=== PATIENT | female | born 1925 | race Caucasian/White ===

== ENCOUNTER 2017-05-10 15:04 | Inpatient (IN) ==
[2017-05-10] MEDS ORDERED: 0.9 % Sodium Chloride 1,000 ML IVC ONE (15:40)
[2017-05-10] MEDS ORDERED: Ondansetron 4 MG/2 ML VIAL IVP ONE (15:47)
[2017-05-10 16:04] LABS: Basophils # 0.1 K/mcL (0.0-0.2); Basophils % 0.7 %; Eosinophils # 0.1 K/mcL (0.0-0.6); Eosinophils % 1.4 %; Hematocrit 38.6 % (35.3-44.9); Hemoglobin 12.3 g/dL (11.5-15.4); Immature Granulocytes % 0.2 % (0-4); Lymphocytes # 1.9 K/mcL (0.6-4.6); Mean Corpuscular HGB Conc 31.9 g/dL (31.6-35.5); Mean Corpuscular Hemoglobin 29.3 pg (28.0-33.3); Mean Corpuscular Volume 91.9 fL (83.0-100.0); Mean Platelet Volume 9.7 fL (9.4-12.4); Monocytes % 12.3 %; Neutrophils # 4.9 K/mcL (1.6-8.9); Platelet Count 258 K/mcL (140-400); Red Cell Distribution Width 14.3 % (11.5-14.5); Segmented Neutrophils % 61.4 %
[2017-05-10 16:18] LABS: Albumin/Globulin Ratio 1.4 (1.1-2.2); Bilirubin,Total 0.6 mg/dL (0.3-1.0); Calcium 9.4 mg/dL (8.6-10.3); Globulin 2.8 g/dL (2.4-3.5); Potassium 3.6 mEq/L (3.5-5.1); Total Protein 6.8 g/dL (6.4-8.9)
[2017-05-10] MEDS ORDERED: 0.9 % Sodium Chloride 500 ML IVC ONE (17:17)
[2017-05-10 18:27] LABS: Bilirubin,Urine Small (Negative); Blood,Urine Moderate (Negative); Clarity,Urine Slightly Cloudy (Clear); Glucose,Urine (UA) Normal (Normal); Ketones,Urine Trace mg/dL (Negative); Leukocyte Esterase,Urine Small (Negative); Nitrite,Urine Negative (Negative); Protein,Urine 100 mg/dL (Neg-Trace); Specific Gravity,Urine 1.025 (1.010-1.025); Urobilinogen,Urine Normal (Normal)
[2017-05-10 18:28] LABS: Color,Urine Yellow (Yellow)
[2017-05-10] MEDS ORDERED: Acetaminophen 325 MG TABLET PO ONE (18:32)
[2017-05-10 18:33] LABS: Bacteria,Urine Few per hpf (None-Few); Hyaline Casts,Urine Few per lpf (None-Few); Squamous Epithelial Cell,Urine Few per lpf (None-Few)
--- NOTE | 2017-05-10 19:27 | Emergency Department Note ---
Disposition Clinical Impression: Urinary tract infection Disposition: Admitted As Inpatient Condition: Fair Instructions: Urinary Tract Infection in Women (ED) Referrals: Esteban Ken MD [Primary Care Provider] - Forms: ED Satisfaction Letter Time of Disposition: 19:27 General Adult HPI - General Chief complaint: ED Headache Stated complaint: bp Time Seen by Provider: 05/10/17 15:25 Source: patient, family Limitations: no limitations Nursing Notes Reviewed: Yes Vital Signs Reviewed: Yes - History of Present Illness HPI Narrative: Ms. Campos has had decreased by mouth intake for the last couple of days. She has been somewhat nauseated but is not vomiting. Very little output into her permanent colostomy bag. No fever no chills. She has been dizzy and lightheaded. No abdominal pain. She has had neck pain for about 2 weeks now on the absence of any trauma and for the last day or so has had a headache. No chest pain no palpitations no urinary symptoms no cough no shortness of breath. She also seems a bit more disoriented than usual per her daughter who accompanies her to the emergency department [place]. Ms. Campos lives at home and has a home health aide check in on her twice a day. She was sent in by her family doctor who called me after discovering that she was very orthostatic in his office. Pain Scale: 6 - Related Data Home Medications Medication Instructions Recorded Confirmed Aspirin [Lo-Dose Aspirin EC] 81 mg PO DAILY 10/31/15 11/21/16 Atorvastatin [Lipitor] 80 mg PO HS 10/31/15 11/21/16 Citalopram [CeleXA] 20 mg PO DAILY 10/31/15 11/21/16 Diltiazem HCl [Diltiazem ER] 180 mg PO DAILY 10/31/15 11/21/16 Lisinopril [Zestril] 20 mg PO DAILY 10/31/15 11/21/16 Multivitamin [Multivitamins] 1 each PO DAILY 10/31/15 11/21/16 Rivaroxaban [Xarelto] 20 mg PO DAILY 10/31/15 11/21/16 hydroCHLOROthiazide 25 mg PO DAILY 10/31/15 11/21/16 [Hydrochlorothiazide] Donepezil [Aricept] 5 mg PO HS 11/21/16 11/21/16 Previous Rx's Medication Instructions Recorded Ondansetron HCl [Zofran] 4 mg PO Q6H PRN #10 tablet 12/25/16 Allergies Allergy/AdvReac Type Severity Reaction Status Date / Time celecoxib [From Celebrex] Allergy See Verified 12/25/16 01:45 Comments methocarbamol [From Robaxin] Allergy See Verified 12/25/16 01:45 Comments Tetanus Vaccines and Toxoid Allergy Anaphylaxis Verified 12/25/16 01:45 [Tetanus Vaccines & Toxoid] morphine AdvReac Confusion Verified 12/25/16 01:45 Constitutional: Denies: fever, chills Eyes: Denies: vision change ENT ED: Denies: throat pain, congestion Cardiovascular: Denies: chest pain, palpitations Respiratory: Denies: cough, dyspnea Gastrointestinal: Reports: as per HPI. Denies: abdominal pain, nausea, vomiting , diarrhea Genitourinary: Denies: urgency, dysuria, frequency Musculoskeletal: Reports: neck pain. Denies: myalgia Neurological: Reports: headache Endocrine: Reports: fatigue Hematological/Lymphatic: Reports: easy bruising Past Medical History - Past Medical History Medical history: Reports: atrial fibrillation, dementia, hyperlipidemia, hypertension Psychiatric history: Reports: depression GOAL UMPIRE history: Reports: no GOAL UMPIRE history - Social History Smoking Status: Never smoker Smokeless Tobacco Status: No Alcohol use: Reports: none Drug use: Reports: none Physical Exam - General Limitations: no limitations General appearance: alert, in no apparent distress - Head Head exam: atraumatic, normocephalic, normal inspection - Eye Eye exam: Present: normal appearance, PERRL, EOMI. Absent: periorbital swelling , periorbital tenderness - ENT ENT exam: normal oropharynx, mucous membranes dry, TM's normal bilaterally, normal external ear exam - Neck Neck exam: Present: normal inspection, full ROM. Absent: tenderness - Chest Chest inspection: Present: normal inspection, symmetric chest wall rise - Respiratory Respiratory exam: Present: normal lung sounds bilaterally. Absent: respiratory distress, wheezes, stridor - Cardiovascular Cardiovascular exam: Present: regular rate, normal rhythm, normal heart sounds - Abdominal Exam Abdominal exam: Present: soft, Non-Tender, normal bowel sounds, other ( Colostomy bag intact. It is not see-through therefore I cannot comment on the contents but they feel as though they are liquefied.). Absent: distention, guarding, rebound, rigidity - Extremities Exam Extremities exam: Present: normal inspection. Absent: pedal edema - Expanded Lower Extremity Exam Neurovascular/Tendon exam: Absent: pulse deficit (Radial pulse +2 bilateral) - Neurological Exam Neurological exam: Present: alert - Psychiatric Psychiatric exam: Present: normal affect, normal mood - Skin Skin exam: Present: warm, dry Course Vital Signs Temperature 98.2 F 05/10/17 15:13 Pulse Rate 74 05/10/17 15:13 Respiratory Rate 18 05/10/17 15:13 Blood Pressure 132/77 05/10/17 15:13 O2 Sat by Pulse Oximetry 98 05/10/17 15:13 Temperature 98.2 F 05/10/17 15:13 Pulse Rate 77 05/10/17 19:43 Respiratory Rate 14 05/10/17 19:43 Blood Pressure 142/64 05/10/17 19:43 O2 Sat by Pulse Oximetry 97 05/10/17 19:43 Oxygen Delivery Oxygen Delivery Room Air Medical Decision Making - MDM Narrative Medical decision making narrative: Urinary tract infection. This could be the etiology for her increased confusion and decreased appetite. She was given 1500 mL's before she was able to produce a urine sample. After which I did help her to a standing position but she is very unsteady. I believe she is a fall risk and it might be more prudent to observe her in the hospital overnight to continue IV hydration and start her medication for urinary tract infection. Daughter is in agreement with this. They did try her family physician several times over the course of an hour after workup was done and disposition was ready. Unfortunately I was unable to speak with him about the admission therefore I spoke with the covering hospitalist and [place] and presented the case. He accepted admission. Ms. Campos is in stable condition awaiting transfer to [place]. The admitting family physician here at [facility] did call back and is happy to take Ms. Campos as an admission. Orders were written and she was transferred back to the floor in good condition. - Medical Records Medical records reviewed: Yes I reviewed the patient's medical records. - Lab Data Lab results reviewed: Yes I reviewed the patient's lab results. Result diagrams: 05/10/17 15:51 05/10/17 15:51 Lab Results 05/10/17 05/10/17 05/10/17 Range/Units 15:51 15:51 15:51 WBC 8.0 (4.3-11.1) K/mcL RBC 4.20 (3.82-4.97) M/mcL Hgb 12.3 (11.5-15.4) g/dL Hct 38.6 (35.3-44.9) % MCV 91.9 (83.0-100.0) fL MCH 29.3 (28.0-33.3) pg MCHC 31.9 (31.6-35.5) g/dL RDW 14.3 (11.5-14.5) % Plt Count 258 (140-400) K/mcL MPV 9.7 (9.4-12.4) fL Immature Gran % 0.2 (0-4) % Seg Neutrophils % 61.4 % Lymphocytes % 24.0 % Monocytes % 12.3 % Eosinophils % 1.4 % Basophils % 0.7 % Neutrophils # 4.9 (1.6-8.9) K/mcL Lymphocytes # 1.9 (0.6-4.6) K/mcL Monocytes # 1.0 (0.0-1.3) K/mcL Eosinophils # 0.1 (0.0-0.6) K/mcL Basophils # 0.1 (0.0-0.2) K/mcL Sodium 138 (136-145) mEq/L Potassium 3.6 (3.5-5.1) mEq/L Chloride 100 (98-107) mEq/L Carbon Dioxide 27 (23-29) mEq/L BUN 25 H (8-23) mg/dL Creatinine 1.27 H (0.60-1.20) mg/dL Est GFR ( Amer) 48 L (> 60) Est GFR (Non-Af Amer) 40 L (> 60) BUN/Creatinine Ratio 20 (6-26) Glucose 97 (70-105) mg/dL Calculated Osmolality 290 (280-300) Lactic Acid 0.9 (0.5-2.2) mmol/L Calcium 9.4 (8.6-10.3) mg/dL Total Bilirubin 0.6 (0.3-1.0) mg/dL AST 21 (13-39) Units/L ALT 12 (7-52) Units/L Alkaline Phosphatase 79 (34-104) Units/L Serum Total Protein 6.8 (6.4-8.9) g/dL Albumin 4.0 (3.5-5.7) g/dL Globulin 2.8 (2.4-3.5) g/dL Albumin/Globulin Ratio 1.4 (1.1-2.2) Lipase (11-82) Units/L Urine Color Urine Clarity Urine pH Ur Specific [place] Urine Protein Urine Glucose (UA) Urine Ketones Urine Blood Urine Nitrite Urine Bilirubin Urine Urobilinogen Ur Leukocyte Esterase Urine Microscopic RBC (0-3) per hpf Urine Microscopic WBC (0-3) per hpf Ur Squamous Epith Cells (None-Few) per lpf Urine Bacteria (None-Few) per hpf Hyaline Casts (None-Few) per lpf Ur Culture Indicated? (NO) 05/10/17 05/10/17 05/10/17 Range/Units 15:51 16:40 18:20 WBC (4.3-11.1) K/mcL RBC (3.82-4.97) M/mcL Hgb (11.5-15.4) g/dL Hct (35.3-44.9) % MCV (83.0-100.0) fL MCH (28.0-33.3) pg MCHC (31.6-35.5) g/dL RDW (11.5-14.5) % Plt Count (140-400) K/mcL MPV (9.4-12.4) fL Immature Gran % (0-4) % Seg Neutrophils % % Lymphocytes % % Monocytes % % Eosinophils % % Basophils % % Neutrophils # (1.6-8.9) K/mcL Lymphocytes # (0.6-4.6) K/mcL Monocytes # (0.0-1.3) K/mcL Eosinophils # (0.0-0.6) K/mcL Basophils # (0.0-0.2) K/mcL Sodium (136-145) mEq/L Potassium (3.5-5.1) mEq/L Chloride (98-107) mEq/L Carbon Dioxide (23-29) mEq/L BUN (8-23) mg/dL Creatinine (0.60-1.20) mg/dL Est GFR ( Amer) (> 60) Est GFR (Non-Af Amer) (> 60) BUN/Creatinine Ratio (6-26) Glucose (70-105) mg/dL Calculated Osmolality (280-300) Lactic Acid (0.5-2.2) mmol/L Calcium (8.6-10.3) mg/dL Total Bilirubin (0.3-1.0) mg/dL AST (13-39) Units/L ALT (7-52) Units/L Alkaline Phosphatase (34-104) Units/L Serum Total Protein (6.4-8.9) g/dL Albumin (3.5-5.7) g/dL Globulin (2.4-3.5) g/dL Albumin/Globulin Ratio (1.1-2.2) Lipase 28 (11-82) Units/L Urine Color TNP Yellow Urine Clarity TNP Slightly Cloudy A Urine pH TNP 5.0 Ur Specific [place] TNP 1.025 Urine Protein TNP 100 H Urine Glucose (UA) TNP Normal Urine Ketones TNP Trace H Urine Blood TNP Moderate H Urine Nitrite TNP Negative Urine Bilirubin TNP Small H Urine Urobilinogen TNP Normal Ur Leukocyte Esterase TNP Small H Urine Microscopic RBC 3-5 H (0-3) per hpf Urine Microscopic WBC 5-15 H (0-3) per hpf Ur Squamous Epith Cells Few (None-Few) per lpf Urine Bacteria Few (None-Few) per hpf Hyaline Casts Few (None-Few) per lpf Ur Culture Indicated? YES A (NO) - Radiology Data Radiology results reviewed: Yes I reviewed the patient's radiology results.
[2017-05-10] MEDS ORDERED: 0.9 % Sodium Chloride 1,000 ML IVC SCH ×2 (20:15→22:15)
[2017-05-10] MEDS ORDERED: Nitrofurantoin (BID) 100 MG CAPSULE PO ONE (20:57)
[2017-05-10] MEDS ORDERED: Naloxone 0.4 MG/ML INJ IVP PRN (22:06)
[2017-05-11] MEDS ORDERED: *HR* HYDROcodone/Acet 5/325 mg TABLET PO ONE (00:41)
[2017-05-11] MEDS: 0.9 % Sodium Chloride 1,000 ML IVC SCH ×2 (04:34→05:24)
[2017-05-11 05:56] LABS: Blood Urea Nitrogen 14 mg/dL (8-23); Calcium 8.8 mg/dL (8.6-10.3); Carbon Dioxide 22 mEq/L (23-29); Chloride 103 mEq/L (98-107); Glucose 87 mg/dL (70-105); Osmolality,Calculated 280 (280-300); Sodium 135 mEq/L (136-145)
[2017-05-11 06:53] LABS: BUN/Creatinine Ratio 16 (6-26); eGFR For Non-African Americans > 60 (> 60)
[2017-05-11] MEDS ORDERED: Nitrofurantoin (BID) 100 MG CAPSULE PO SCH (08:00)
[2017-05-11] MEDS ORDERED: Diltiazem CD (24hr) 180 MG CAPSULE PO SCH (09:00)
[2017-05-11] MEDS ORDERED: *HR* Rivaroxaban 10 MG TABLET PO SCH (09:00)
--- NOTE | 2017-05-11 09:07 | Internal Med History&Physical ---
Date of Encounter: 05/11/17 Time of Encounter: 09:07 Assessment and Plan (1) Atrial fibrillation with RVR Current visit: Yes Status: Acute Patient was admitted to the hospital with orthostatic hypotension, acute confusion, severe weakness and lethargy and inability to ambulate. It was documented she was in normal sinus rhythm in the ER. However, overnight patient has developed atrial fibrillation with RVR and is now on a Cardizem drip. She has a history of atrial fibrillation in the past and was well controlled with po Cardizem. She is having no angina or CHF. Does not give her any symptoms. I suspect she either missed a dose of her oral Cardizem, or her acute illness has thrown her into atrial fibrillation with RVR. Fortunately , she is already anticoagulated with Xarelto. I clarified CODE STATUS with daughter and written information regarding living will etc. She will be DNR CCA. No intubation, no CPR, no life support. (2) Urinary tract infection Current visit: Yes Status: Acute In the ER her urine appeared to be infected. She has no acute urinary symptoms. She was started on Macrodantin. Given her hospitalization and continued fatigue and lethargy I am going to add intravenous Levaquin until culture is back. Her UTI may contributed to her feeling ill, poor by mouth intake, acute confusion, lethargy etc. Qualifiers: Urinary tract infection type: acute cystitis Hematuria presence: without hematuria Qualified Code(s): N30.00 - Acute cystitis without hematuria (3) Orthostatic hypotension Current visit: Yes Status: Acute Patient was found to have orthostatic hypotension in the office with blood pressure going from 126/60 down to 70/palp. She has been given IV fluids. Her blood pressure has improved. She still looks dry. Her creatinine was in the normal limit yesterday, but elevated and improved after IV hydration today. I suspect some acute mild kidney injury from dehydration. We will continue IV fluids for now. (4) Paroxysmal atrial fibrillation Current visit: Yes Status: Chronic Chronic history of paroxysmal atrial fibrillation. She has been in sinus rhythm in the office past many visits. She has long-term anticoagulation with Xarelto. She has no angina or congestive heart failure history. (5) Depression Current visit: Yes Status: Chronic Chronic history of depression and uses citalopram. Qualifiers: Depression Type: major depressive disorder Major depression recurrence: single episode Active/Remission status: in partial remission Qualified Code( s): F32.4 - Major depressive disorder, single episode, in partial remission (6) Mild dementia Current visit: Yes Status: Chronic Chronically has mild dementia, but lives in her own home, has caregivers that help. Up until recently she was able to drive. She is able to take care of her usual personal hygiene and care. Currently however she has acute confusion likely due to her infection and dehydration. (7) Hypertension Current visit: Yes Status: Chronic chronic history of hypertension and chronically uses lisinopril and hydrochlorothiazide. Is also on Cardizem due to paroxysmal atrial fibrillation. There is both being held because of her orthostatic hypotension and probable dehydration. Qualifiers: Hypertension type: essential hypertension Qualified Code(s): I10 - Essential (primary) hypertension (8) Acute confusion due to known medical condition Current visit: Yes Status: Acute She is acute confusion and lethargy likely due to her presumed dehydration, acute urinary tract infection, poor by mouth intake over the past few days. We will continue with IV fluids, treat infection, supportive care. (9) Personal history of colon cancer Current visit: Yes Status: Chronic History of colon cancer since 1994 and had resection and ostomy. Currently there is no air or liquid in her ostomy bag. She did have air previously. Abdomen is soft and nontender. No vomiting. We will monitor. She does have a history of recurring small bowel obstructions with conservative treatment seem to resolve (10) Dehydration Current visit: Yes Status: Acute Likely dehydration with dry mucous membranes, I and imbalance, mild bump up in her creatinine improved with IV fluids now, orthostatic hypotension. We will continue IV fluids and monitor. (11) Electrolyte imbalance Current visit: Yes Status: Acute We will add potassium to her IV. (12) Chronic anticoagulation Current visit: Yes Status: Chronic Clinically she is on Xarelto for paroxysmal atrial fibrillation. We will not give her Lovenox further anticoagulation for DVT prophylaxis. Internal Medicine - H&P: HPI Chief complaint: I have a headache Admitted From: Emergency Dept Plans for Post Hospital Care: Home History of present illness: Ms. Campos is a 89 year old female with long-standing history of hypertension , paroxysmal atrial fibrillation, anticoagulation with Xarelto, mild dementia who lives in her own home but has caregivers part of the day. She was her usual self until about 2 weeks prior to admission when she started having a headache and neck pain. She was using Icy hot and Tylenol for her symptoms. However, 2 days prior to admission and became a lot worse. I saw her in the office yesterday, she has not had any food to eat for at least 2 days and had only a small amount of 7-Up to drink over the previous 2 days. She had some mild nausea but no vomiting. She has no fever, chills, cough. She denied any stiff neck, but complained of pain in the back of her neck and nonspecific generalized headache. No recent travel or exposures. She denied any chest pain , palpitation, irregular heartbeat, vomiting. She was having air into her ostomy bag but cannot remember the last stool she had. When I saw her in the office she looked acutely ill, she was slouched down in the wheelchair, was unable to stand without assistance, her blood pressure dropped from 126/60 to 70/palp standing upright. She had dried mucous membranes. She was immediately sent to the emergency room. There her evaluation showed possible UTI with infected appearing urine and she had orthostatic hypotension. She was given IV fluids. She still has confusion and lethargy and was admitted overnight to an observation bed for more IV fluids. This morning however, she has gone from normal sinus rhythm to atrial fibrillation with RVR with heart rate in the 140s. She has no chest pain, palpitations and she has feels very comfortable lying in bed except for her headache. She is dozing on and off. She did not get much sleep last night because of the IV, her headache and frequent urination. She also remains confused. Her daughter who is present says she is not back to baseline. Patient thought she had been here for 2 or 3 days, but she knew she was in the hospital. She does not recall being in the office yesterday, does not recall the ER or any other details. She is dozing on and off. Past Med Surg Social Fam HX - Past Medical History Medical history: atrial fibrillation (Paroxysmal atrial fibrillation, anticoagulated with Xarelto), cancer (History of colon cancer 1994 and has ostomy), dementia, hyperlipidemia, hypertension, other (History lumbar radiculopathy pain) Psychiatric history: depression, other (Mild dementia) - Past Surgical History Surgical History: appendectomy, colectomy (1994 colon resection for cancer), herniorrhaphy, hysterectomy, orthopedic, other (Right distal radial fracture 2012) - Social History Smoking Status: Never smoker Smokeless Tobacco Status: No Alcohol use: occasionally Drug use: none 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[employer]) Current living situation: Home, Other (Has caregiver part of the day and daughter lives nearby) Activity Level: Independent ambulation (Generally independent ambulation in the home, uses cane or walker frequently not able to do so currently), Uses cane/ walker Recent Out of Country Travel Within the Last 8 Weeks: No Exposure or Possible Exposure to Illness During Travel: No - Family History Daughter History Unknown: Yes Name: Roselyn Sandoval Living Status: Still Living Hx Family Cardiac Disorders: (unknown) Hx Family Respiratory Disorders: (unknown) Hx Family Cancer: (unknown) Hx Family GI Disorders: (unknown) Hx Family Genitourinary Disorders: (unknown) Hx Family Endocrine Disorder: (unknown) Hx Family Musculoskeletal Disorders: (unknown) Hx Family Neuromuscular Disorders: (unknown) Hx Family Neurologic Disorders: (unknown) Hx Family HEENT Disorders: (unknown) Hx Family Autoimmune Disorders: (unknown) Hx Family Reproductive Disorders: (unknown) Hx Family Psychosocial Disorders: (unknown) Hx Family Medical Disorders: (unknown) Internal Medicine - H&P: Meds Aspirin [Lo-Dose Aspirin EC] 81 mg PO DAILY 10/31/15 [History] Atorvastatin [Lipitor] 80 mg PO HS 10/31/15 [History] Citalopram [CeleXA] 20 mg PO DAILY 10/31/15 [History] Diltiazem HCl [Diltiazem ER] 180 mg PO DAILY 10/31/15 [History] Lisinopril [Zestril] 20 mg PO DAILY 10/31/15 [History] Multivitamin [Multivitamins] 1 each PO DAILY 10/31/15 [History] Rivaroxaban [Xarelto] 20 mg PO DAILY 10/31/15 [History] hydroCHLOROthiazide [Hydrochlorothiazide] 25 mg PO DAILY 10/31/15 [History] Donepezil [Aricept] 5 mg PO HS 11/21/16 [History] Omeprazole [PriLOSEC] 05/11/17 [History] Omeprazole [PriLOSEC] 40 mg PO DAILY 05/11/17 [History] 3 Allergy/AdvReac Type Severity Reaction Status Date / Time celecoxib [From Celebrex] Allergy See Verified 12/25/16 01:45 Comments methocarbamol [From Robaxin] Allergy See Verified 12/25/16 01:45 Comments Tetanus Vaccines and Toxoid Allergy Anaphylaxis Verified 12/25/16 01:45 [Tetanus Vaccines & Toxoid] morphine AdvReac Confusion Verified 12/25/16 01:45 - Constitutional Constitutional: anorexia (Had not eaten for 2-3 days prior to admission), lethargy, malaise, weakness (Generalized weakness, inability to walk), no chills , no fever(s), no falls, no night sweats - EENT Eyes: no change in vision, no diplopia, no discharge, no loss of vision Ears: no decreased hearing, no ear discharge, no ear pain Nose, mouth and throat: dry mouth, no nasal congestion, no sinus pressure, no sore throat - Cardiovascular Cardiovascular ROS IM: lightheadedness, no chest pain, no diaphoresis, no dyspnea, no dyspnea on exertion, no edema, no irregular heart rhythm, no orthopnea, no palpitations, no syncope - Respiratory Respiratory: no cough, no dyspnea, no hemoptysis, no dyspnea on exertion, no wheezing - Gastrointestinal Gastrointestinal: nausea (Small amount of nausea but no vomiting. Virtually no po intake for the past 2 or 3 days), no abdominal pain, no belching, no bloating , no constipation, no vomiting Additional comments: She has had air in her ostomy bag, but cannot recall the last time she had stool or liquid - Genitourinary Genitourinary: no dysuria, no flank pain, no pelvic pain, no urinary frequency, no urinary incontinence, no urinary urgency, no vaginal discharge Menstruation: post menopausal - Musculoskeletal Musculoskeletal ROS IM: as per HPI Additional comments: Generalized weakness likely due to orthostatic hypotension - Integumentary Integumentary IM: no new lesions, no jaundice - Neurological Neurological ROS: confusion (Increased confusion today, lack of memory for the past few days events.), disequilibrium, memory loss (As in history of present illness), weakness (Generalized weakness as in history of present illness), no abnormal speech, no focal weakness, no radicular pain, no tremor(s), no vertigo - Psychiatric Psychiatric: memory loss (As in history of present illness), no auditory hallucinations, no visual hallucinations - Constitutional Vitals: Temp Pulse Resp BP Pulse Ox 98.5 F 98 18 153/80 93 05/11/17 04:00 05/11/17 04:00 05/11/17 04:00 05/11/17 04:00 05/11/17 04:00 General appearance: Present: A&O X 2, mild distress (Complaints of headache, but dozes off in between questions). Absent: answers questions appropriately - Head Head exam: Present: atraumatic, normal inspection, normocephalic Additional comments: No localizing tenderness. No signs of trauma. - Eye Eye exam: Present: EOMI. Absent: nystagmus, scleral icterus Pupils: Present: PERRL - ENT ENT exam: Present: mucous membranes dry Additional comments: Right TM is obscured with cerumen. Left is normal - Neck Neck exam general surgery: Present: full ROM (Full range of motion for her age. No meningeal signs.). Absent: lymphadenopathy, tenderness, nuchal rigidity, thyromegaly - Respiratory Respiratory exam: Present: CTAB. Absent: rales, respiratory distress, rhonchi, wheezes, tachypnea - Cardiovascular Cardiovascular exam: Present: irregular rhythm (Heart rate proximal and 100, monitor showed up to 149), +S1, +S2, systolic murmur (Intermittent 1/6 systolic murmur) - GI/Abdominal GI/Abdominal exam: Present: normal bowel sounds, soft. Absent: tenderness Additional comments: Abdomen soft and nontender. Ostomy in the right lower quadrant without air or stool or liquid. She has weak abdominal musculature with large hernias particularly left upper quadrant. No masses. - Extremities Exam Extremities exam: Present: normal capillary refill, warm. Absent: calf tenderness, joint swelling, mottling, pedal edema, tenderness - Back Exam Back exam: Absent: CVA tenderness (L), CVA tenderness (R), vertebral tenderness - Neurological Exam Neurological exam: Present: altered (She drifts off to sleep easily.), CN II- XII intact, strengths equal and symetr throughout. Absent: oriented X3 (She no she is in the hospital. She knows who I am. She thinks she has been here 2 or 3 days though not just overnight. She does not recall being in the office or in the ER yesterday.), no focal deficits, facial droop - Psychiatric Additional comments: She is very sleepy today. She is pleasant in conversation. Memory deficits as discussed in history of present illness. - Skin Skin exam: Absent: petechiae, rash Internal Med - H&P Results - Labs CBC & Chem 7: 05/10/17 15:51 05/11/17 05:10 Labs: BMP 05/11/17 05:10 Sodium 135 L Potassium 3.0 L Chloride 103 Carbon Dioxide 22 L BUN 14 Creatinine 0.85 Glucose 87 Calcium 8.8 Labs have been reviewed. Overnight she developed hypokalemia and hyponatremia. Creatinine has improved. - EKG Data EKG comments: 05/11/17 10:22 EKG from admission shows normal sinus rhythm. Monitor on telemetry today shows atrial fibrillation with RVR with heart rate up to 149. Current EKG is pending. - VTE Reasons for not Prescribing Prophylaxis: Not indicated-Anticoagulated or INR therapeutic
[2017-05-11] MEDS ORDERED: 0.9 % Sodium Chloride Mini Bag 100 ML ONE (09:33)
[2017-05-11] MEDS: Aspirin Enteric Coated 81 MG Tablet PO SCH (09:56)
[2017-05-11] MEDS: 0.9 % Sodium Chloride w KCl 20 MEQ/1,000 ML MLS IVC SCH ×2 (12:32→21:30)
[2017-05-11] MEDS: Diltiazem CD (24hr) 240 MG CAPSULE PO SCH (16:21)
[2017-05-11] MEDS: Acetaminophen 325 MG TABLET PO PRN (17:50)
[2017-05-11] MEDS ORDERED: Acetaminophen 325 MG TABLET PO ONE (18:09)
--- NOTE | 2017-05-11 18:45 | Event Note ---
Date of Encounter: 05/11/17 Time of Encounter: 18:40 I reevaluated patient this evening. She is quite sleepy, arousable. Her vitals are stable. She is on the diltiazem drip. With the pulse slowed the monitor showed atrial flutter. Currently heart rate is in the 70s. Drip is down to 5 mg. Patient has no chest pain, palpitation, dyspnea etc. Troponin was 0.03 I discussed case with Dr. Hess. He agreed with continuing diltiazem as at home but increase the dose to 240 mg. He suggested that ablation may be an option as well. We will continue the drip for now. Currently she is stable from a cardiac point of view.
--- NOTE | 2017-05-11 19:17 | Electrocardiograph Report ---
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
--- NOTE | 2017-05-11 19:37 | Electrocardiograph Report ---
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
[2017-05-11] MEDS ORDERED: Nitrofurantoin (BID) 100 MG CAPSULE PO ONE (19:59)
[2017-05-12] MEDS: Acetaminophen 325 MG TABLET PO PRN ×4 (00:19→14:54)
[2017-05-12] MEDS: 0.9 % Sodium Chloride w KCl 20 MEQ/1,000 ML MLS IVC SCH ×2 (05:03→10:14)
[2017-05-12 05:55] LABS: Basophils # 0.1 K/mcL (0.0-0.2); Basophils % 0.8 %; Eosinophils # 0.1 K/mcL (0.0-0.6); Eosinophils % 1.7 %; Hematocrit 36.3 % (35.3-44.9); Hemoglobin 11.7 g/dL (11.5-15.4); Immature Granulocytes % 0.5 % (0-4); Lymphocytes # 1.3 K/mcL (0.6-4.6); Lymphocytes % 19.7 %; Mean Corpuscular HGB Conc 32.2 g/dL (31.6-35.5); Mean Corpuscular Hemoglobin 29.3 pg (28.0-33.3); Mean Corpuscular Volume 90.8 fL (83.0-100.0); Mean Platelet Volume 9.8 fL (9.4-12.4); Monocytes # 0.6 K/mcL (0.0-1.3); Monocytes % 9.7 %; Neutrophils # 4.3 K/mcL (1.6-8.9); Platelet Count 220 K/mcL (140-400); Red Cell Distribution Width 14.1 % (11.5-14.5); Segmented Neutrophils % 67.6 %
[2017-05-12 06:52] LABS: Thyroid Stimulating Hormone 0.763 mcIU/mL (0.340-5.600)
[2017-05-12 06:54] LABS: BUN/Creatinine Ratio 10 (6-26); Blood Urea Nitrogen 7 mg/dL (8-23); Calcium 8.7 mg/dL (8.6-10.3); Carbon Dioxide 23 mEq/L (23-29); Chloride 104 mEq/L (98-107); Glucose 95 mg/dL (70-105); Osmolality,Calculated 282 (280-300); Potassium 3.8 mEq/L (3.5-5.1); Sodium 137 mEq/L (136-145); eGFR For Non-African Americans > 60 (> 60)
[2017-05-12] MEDS: Diltiazem CD (24hr) 240 MG CAPSULE PO SCH (08:56)
[2017-05-12] MEDS: Aspirin Enteric Coated 81 MG Tablet PO SCH (08:56)
--- NOTE | 2017-05-12 09:40 | Internal Med Progress Note ---
Date of Encounter: 05/12/17 Time of Encounter: 09:28 - Assessment and plan (1) Atrial flutter with rapid ventricular response Current Visit: Yes Status: Acute Assessment and plan: Her rhythm based on EKG findings is atrial flutter with RVR, now rate is controlled with IV Cardizem and restarting her oral Cardizem at a higher dose. Hopefully oral med will control it enough that we can taper the drip today. Her blood pressure is good, sometimes on the high side but reassuring at this point. She is having no symptoms from this. Consideration for ablation if we cannot get this controlled discussed with patient. No angina or CHF. (2) Atrial fibrillation with RVR Current Visit: Yes Status: Acute (3) Urinary tract infection Current Visit: Yes Status: Acute Assessment and plan: Final culture is pending. We will continue Rocephin for now. Blood cultures negative. Qualifiers: Urinary tract infection type: acute cystitis Hematuria presence: without hematuria Qualified Code(s): N30.00 - Acute cystitis without hematuria (4) Orthostatic hypotension Current Visit: Yes Status: Acute Assessment and plan: Blood pressures are good, and fact a bit high. Will follow for now before resuming her hydrochlorothiazide and JONATHON inhibitor. (5) Paroxysmal atrial fibrillation Current Visit: Yes Status: Chronic Assessment and plan: Chronically anticoagulated with Xareto (6) Depression Current Visit: Yes Status: Chronic Qualifiers: Depression Type: major depressive disorder Major depression recurrence: single episode Active/Remission status: in partial remission Qualified Code( s): F32.4 - Major depressive disorder, single episode, in partial remission (7) Mild dementia Current Visit: Yes Status: Chronic Assessment and plan: She appears more alert and social today. Less confusion currently. We will follow. (8) Hypertension Current Visit: Yes Status: Chronic Assessment and plan: Follow current blood pressures for now. I would rather have it run a bit high than go to low. Qualifiers: Hypertension type: essential hypertension Qualified Code(s): I10 - Essential (primary) hypertension (9) Acute confusion due to known medical condition Current Visit: Yes Status: Acute Assessment and plan: She is still not eating well. She seems less confused today. She knew where she was, she knew who I was and we had a reasonable conversation. She has been sleeping a lot. (10) Personal history of colon cancer Current Visit: Yes Status: Chronic (11) Dehydration Current Visit: Yes Status: Acute Assessment and plan: Resolving. We will continue IV fluids until she takes by mouth well (12) Electrolyte imbalance Current Visit: Yes Status: Resolved Assessment and plan: Sodium and potassium are now normal after IV replacement and correction of her acute kidney injury. (13) Acute renal injury due to hypovolemia Current Visit: Yes Status: Acute Assessment and plan: On admission she had elevated creatinine and decreased GFR. Likely acute kidney injury from dehydration. This is now resolved. (14) Chronic anticoagulation Current Visit: Yes Status: Chronic - Subjective Interval history: Patient still complains of "headache". Not very specific though. She thinks it comes from her neck and she is tender bilaterally along sternocleidomastoid muscles. No neurological changes. She rests very comfortably though. At home she uses a rice sock on her neck, we will initiate that here. She denies any chest pain, palpitation, dyspnea, nausea, vomiting, or any pain besides her headache. Staff reports she has not been eating very well at all. She is generally napping most of the time. - Constitutional Vitals: Temp Pulse Resp BP Pulse Ox 98.7 F 84 14 164/76 97 05/12/17 08:00 05/12/17 08:00 05/12/17 08:00 05/12/17 08:00 05/12/17 08:00 General appearance: Present: A&O X 2. Absent: answers questions appropriately ( Thought it was October. Did not know when she came in. She knew she was at the hospital and knew who I was.) Exam: She is more awake and alert and interactive today compared to last night. - Head Head exam: Present: atraumatic, normal inspection Additional comments: Head is nontender. No meningeal signs. - Neck Neck exam general surgery: Present: full ROM, tenderness (She is tender along both sternocleidomastoid muscles. But she has good range of motion.). Absent: lymphadenopathy, nuchal rigidity, thyromegaly - Respiratory Respiratory exam: Present: CTAB. Absent: respiratory distress - Cardiovascular Cardiovascular exam: Present: irregular rhythm, +S1, +S2, systolic murmur (1 to 2/6 systolic murmur. Monitor shows atrial flutter, heart rate 60s to 80s currently) - GI/Abdominal GI/Abdominal exam: Present: soft. Absent: mass, tenderness Additional comments: Abdomen is soft. No air in the ostomy bag, but they are burping it frequently. No stooling is noted. There is no distention or tenderness. She has weak abdominal musculature and hernia particularly left upper quadrant which is chronic and unchanged. - Extremities Exam Extremities exam: Absent: calf tenderness, pedal edema, tenderness - Neurological Exam Neurological exam: Present: alert, CN II-XII intact, no focal deficits (Except she thought it was October not April, and could not tell me how long she had been here.), strengths equal and symetr throughout. Absent: facial droop Internal Medicine: Result - Labs CBC & Chem 7: 05/12/17 05:35 05/12/17 05:35 Labs: Short CBC 05/12/17 Range/Units 05:35 WBC 6.4 (4.3-11.1) K/mcL Hgb 11.7 (11.5-15.4) g/dL Hct 36.3 (35.3-44.9) % Plt Count 220 (140-400) K/mcL Neutrophils # 4.3 (1.6-8.9) K/mcL BMP 05/12/17 05:35 Sodium 137 Potassium 3.8 Chloride 104 Carbon Dioxide 23 BUN 7 L Creatinine 0.68 Glucose 95 Calcium 8.7 Labs are basically normal. Her hyponatremia, hypokalemia have been resolved. Her acute kidney injury is now normalized. - Prior EKG Data EKG comments: 05/12/17 09:45 surveillance system monitor shows continued flutter with controlled rate in the 60s to 80s - VTE Reasons for not Prescribing Prophylaxis: Not indicated-Anticoagulated or INR therapeutic Consult Discharge Plan - Plan Referrals: Esteban Ken MD [Primary Care Provider] -
[2017-05-12] MEDS ORDERED: *HR* Rivaroxaban 15 MG TABLET PO SCH (18:00)
[2017-05-12] MEDS: Metoprolol XL (24 HR) Succ 25 MG TAB.ER.24H PO SCH (21:32)
[2017-05-13] MEDS: 0.9 % Sodium Chloride w KCl 20 MEQ/1,000 ML MLS IVC SCH (01:50)
[2017-05-13 06:39] LABS: BUN/Creatinine Ratio 7 (6-26); Blood Urea Nitrogen 5 mg/dL (8-23); Calcium 8.7 mg/dL (8.6-10.3); Carbon Dioxide 23 mEq/L (23-29); Chloride 102 mEq/L (98-107); Glucose 93 mg/dL (70-105); Osmolality,Calculated 273 (280-300); Potassium 3.8 mEq/L (3.5-5.1); Sodium 133 mEq/L (136-145); eGFR For Non-African Americans > 60 (> 60)
--- NOTE | 2017-05-13 09:13 | Event Note ---
Date of Encounter: 05/13/17 Time of Encounter: 08:30 making rounds and staff was concerned she did not look good. she was pale, confused, not as alert. daughter wanted to know if family should come from OR. hayden is not really able to answer questions. she was on the bedside commode. lungs with bilateral rhonci, heart normal rate but irreg. she is hot, normal bs abd slightly distended. no edema. staff put her back in bed. blood cultures order cbc, bnp. Jesus Manuel up dated
[2017-05-13 09:41] LABS: Basophils # 0.1 K/mcL (0.0-0.2); Basophils % 1.2 %; Eosinophils # 0.1 K/mcL (0.0-0.6); Eosinophils % 1.8 %; Hematocrit 35.2 % (35.3-44.9); Hemoglobin 11.7 g/dL (11.5-15.4); Immature Granulocytes % 0.3 % (0-4); Lymphocytes # 1.5 K/mcL (0.6-4.6); Lymphocytes % 24.5 %; Mean Corpuscular HGB Conc 33.2 g/dL (31.6-35.5); Mean Corpuscular Hemoglobin 29.7 pg (28.0-33.3); Mean Corpuscular Volume 89.3 fL (83.0-100.0); Mean Platelet Volume 9.5 fL (9.4-12.4); Monocytes # 0.6 K/mcL (0.0-1.3); Monocytes % 10.2 %; Neutrophils # 3.7 K/mcL (1.6-8.9); Platelet Count 244 K/mcL (140-400); Red Blood Count 3.94 M/mcL (3.82-4.97); Red Cell Distribution Width 14.4 % (11.5-14.5)
[2017-05-13] MEDS: Diltiazem CD (24hr) 240 MG CAPSULE PO SCH (09:50)
[2017-05-13] MEDS: Acetaminophen 325 MG TABLET PO PRN (09:50)
[2017-05-13] MEDS: Aspirin Enteric Coated 81 MG Tablet PO SCH (09:50)
[2017-05-13] MEDS: Metoprolol XL (24 HR) Succ 25 MG TAB.ER.24H PO SCH (09:53)
[2017-05-13 09:59] LABS: Bilirubin,Urine Negative (Negative); Blood,Urine Negative (Negative); Clarity,Urine Clear (Clear); Color,Urine Yellow (Yellow); Glucose,Urine (UA) Normal (Normal); Ketones,Urine 15 mg/dL (Negative); Leukocyte Esterase,Urine Negative (Negative); Nitrite,Urine Negative (Negative); PH,Urine 5.5 pH Units (5.0-8.0); Protein,Urine Negative (Neg-Trace); Urobilinogen,Urine Normal (Normal)
--- NOTE | 2017-05-13 10:47 | Discharge Summary ---
Date of Encounter: 05/13/17 Time of Encounter: 10:45 - Discharge Diagnosis (1) Hospital-acquired pneumonia Priority: Primary Status: Acute Comments: Patient is 89-year-old woman who was admitted to a [facility] with orthostatic hypotension, acute kidney injury from dehydration and had presumed UTI. This morning she spiked a fever 101.3. She is requiring 2 L per nasal cannula to maintain saturations in the 90s. She is not having respiratory distress. However, she has new finding of crackles in her lower lung antonio and atelectasis and small amount of pleural effusion noted on chest x-ray which is new. We presume that the fever and lung findings are from hospital-acquired pneumonia. She was previously on Rocephin for UTI (culture however showed mixed toney). Rocephin was discontinued. Cefepime, levofloxacin, vancomycin have been started. We are arranging transfer to [place] for higher level of care. She is not hypotensive or tachycardic. Her white blood cell count is 6000. (2) Febrile illness, acute Priority: Secondary Status: Acute Comments: Acute fever 101.3 this morning. Source is likely hospital-acquired pneumonia. See the diagnoses above. (3) Atrial flutter with rapid ventricular response Priority: Secondary Status: Acute Comments: When patient was admitted with orthostatic hypotension and presumed UTI she was in normal sinus rhythm. During the first 24 hours she developed what appeared to be A. fib with RVR but EKG is consistent with atrial flutter with RVR. She has been on a Cardizem drip and we are trying to wean that off. She has never been hypotensive with this. Heart rate is in the 60s to 90s currently. We have restarted her Cardizem by mouth increased from 180 to 240 mg. Metoprolol 25 mg ER was started last night to assist in rate control. Consideration for ablation discussed, but she is not optimal candidate at this point. She has remained anticoagulated because she has been on Xarelto long-term because of paroxysmal atrial fibrillation. (4) Atrial fibrillation with RVR Priority: Secondary Status: Inactive (5) Urinary tract infection Priority: Secondary Status: Acute Comments: Patient was admitted it appears she had a urinary tract infection. At first she was on Macrobid by the ER physician, and was switched to Rocephin intravenously pending the culture results. Culture results came back last night with mixed toney. Another urine was sent today which does not look infected now. Qualifiers: Urinary tract infection type: acute cystitis Hematuria presence: without hematuria Qualified Code(s): N30.00 - Acute cystitis without hematuria (6) Orthostatic hypotension Priority: Secondary Status: Resolved Comments: Patient had orthostatic hypotension as found in the office when standing her blood pressure was 70 systolic. She was given IV fluids in the ER and a resting supine and seated blood pressures have all been normal or a bit on the high side as her hypertensive medications were held. (7) Paroxysmal atrial fibrillation Priority: Secondary Status: Chronic Comments: Patient has a history of paroxysmal atrial fibrillation chronically. She has been anticoagulated with Xarelto for a while now. When she entered the hospital she was in normal sinus rhythm. (8) Depression Priority: Secondary Status: Chronic Qualifiers: Depression Type: major depressive disorder Major depression recurrence: single episode Active/Remission status: in partial remission Qualified Code( s): F32.4 - Major depressive disorder, single episode, in partial remission (9) Mild dementia Priority: Secondary Status: Chronic (10) Hypertension Priority: Secondary Status: Chronic Qualifiers: Hypertension type: essential hypertension Qualified Code(s): I10 - Essential (primary) hypertension (11) Acute confusion due to known medical condition Priority: Secondary Status: Acute Comments: Patient has mild dementia and can be easily confused. However, during this hospitalization she has been more somnolent, confused, does not know how long she has been here. She is aware she is in the hospital, she knows me and can have some social conversation. This is not her baseline though. She is not awakened as well as we anticipated after rehydration. CT scan of head was nonfocal. She has had complaints of muscular neck pain and he does been helpful. She has had no meningeal signs,no nuchal rigidity. She has had complaints of a headache but typically is nondistressed and sleeping through this. (12) Personal history of colon cancer Priority: Secondary Status: Chronic (13) Dehydration Priority: Secondary Status: Resolved Comments: On admission patient had orthostatic hypotension from presumed dehydration. She had nothing to eat or drink for about 3 days. She had a bump up in her creatinine which is now improved after hydration. (14) Electrolyte imbalance Priority: Secondary Status: Resolved (15) Acute renal injury due to hypovolemia Priority: Secondary Status: Resolved (16) Chronic anticoagulation Priority: Secondary Status: Chronic - Discharge Medications Prescriptions: Levofloxacin 750 MG/150 ML [Levaquin Premix 750mg/150 mL] 750 mg IVPB DAILY #1 bag Home Medications: Aspirin [Lo-Dose Aspirin EC] 81 mg PO DAILY 10/31/15 [History] Atorvastatin [Lipitor] 80 mg PO HS 10/31/15 [History] Citalopram [CeleXA] 20 mg PO DAILY 10/31/15 [History] Multivitamin [Multivitamins] 1 each PO DAILY 10/31/15 [History] Rivaroxaban [Xarelto] 20 mg PO DAILY 10/31/15 [History] Donepezil [Aricept] 5 mg PO HS 11/21/16 [History] Omeprazole [PriLOSEC] 40 mg PO DAILY 05/11/17 [History] Acetaminophen [Tylenol] 650 mg PO Q4HR PRN tablet 05/13/17 [Rx] Cefepime HCl [Maxipime] 2,000 mg IVP Q12H vial 05/13/17 [Rx] Diltiazem CD (24hr) [Cardizem CD] 240 mg PO DAILY cap.er.24h 05/13/17 [Rx] Levofloxacin 750 MG/150 ML [Levaquin Premix 750mg/150 mL] 750 mg IVPB DAILY #1 bag 05/13/17 [Rx] Metoprolol XL (24 HR) Succ [Toprol Xl] 25 mg PO DAILY tab.er.24h 05/13/17 [Rx] Vancomycin [Vancocin] 1,000 mg IVPB Q24H vial 05/13/17 [Rx] Allergies/Adverse Reactions: 3 Allergy/AdvReac Type Severity Reaction Status Date / Time celecoxib [From Celebrex] Allergy See Verified 12/25/16 01:45 Comments methocarbamol [From Robaxin] Allergy See Verified 12/25/16 01:45 Comments Tetanus Vaccines and Toxoid Allergy Anaphylaxis Verified 12/25/16 01:45 [Tetanus Vaccines & Toxoid] morphine AdvReac Confusion Verified 12/25/16 01:45 Procedures/tests Complete & Pending: Laboratory Results - last 48 hr 05/11/17 05/12/17 05/12/17 10:56 05:35 05:35 WBC 6.4 RBC 4.00 Hgb 11.7 Hct 36.3 MCV 90.8 MCH 29.3 MCHC 32.2 RDW 14.1 Plt Count 220 MPV 9.8 Immature Gran % 0.5 Seg Neutrophils % 67.6 Lymphocytes % 19.7 Monocytes % 9.7 Eosinophils % 1.7 Basophils % 0.8 Neutrophils # 4.3 Lymphocytes # 1.3 Monocytes # 0.6 Eosinophils # 0.1 Basophils # 0.1 Sodium 137 Potassium 3.8 Chloride 104 Carbon Dioxide 23 BUN 7 L Creatinine 0.68 Est GFR ( Amer) > 60 Est GFR (Non-Af Amer) > 60 BUN/Creatinine Ratio 10 Glucose 95 Calculated Osmolality 282 Calcium 8.7 Troponin I 0.03 B-Natriuretic Peptide TSH 0.763 Urine Color Urine Clarity Urine pH Ur Specific [place] Urine Protein Urine Glucose (UA) Urine Ketones Urine Blood Urine Nitrite Urine Bilirubin Urine Urobilinogen Ur Leukocyte Esterase Ur Culture Indicated? 05/13/17 05/13/17 05/13/17 06:00 09:00 09:35 WBC 6.0 RBC 3.94 Hgb 11.7 Hct 35.2 L MCV 89.3 MCH 29.7 MCHC 33.2 RDW 14.4 Plt Count 244 MPV 9.5 Immature Gran % 0.3 Seg Neutrophils % 62.0 Lymphocytes % 24.5 Monocytes % 10.2 Eosinophils % 1.8 Basophils % 1.2 Neutrophils # 3.7 Lymphocytes # 1.5 Monocytes # 0.6 Eosinophils # 0.1 Basophils # 0.1 Sodium 133 L Potassium 3.8 Chloride 102 Carbon Dioxide 23 BUN 5 L Creatinine 0.67 Est GFR ( Amer) > 60 Est GFR (Non-Af Amer) > 60 BUN/Creatinine Ratio 7 Glucose 93 Calculated Osmolality 273 L Calcium 8.7 Troponin I B-Natriuretic Peptide TSH Urine Color Yellow Urine Clarity Clear Urine pH 5.5 Ur Specific [place] 1.020 Urine Protein Negative Urine Glucose (UA) Normal Urine Ketones 15 H Urine Blood Negative Urine Nitrite Negative Urine Bilirubin Negative Urine Urobilinogen Normal Ur Leukocyte Esterase Negative Ur Culture Indicated? NO 05/13/17 09:35 WBC RBC Hgb Hct MCV MCH MCHC RDW Plt Count MPV Immature Gran % Seg Neutrophils % Lymphocytes % Monocytes % Eosinophils % Basophils % Neutrophils # Lymphocytes # Monocytes # Eosinophils # Basophils # Sodium Potassium Chloride Carbon Dioxide BUN Creatinine Est GFR ( Amer) Est GFR (Non-Af Amer) BUN/Creatinine Ratio Glucose Calculated Osmolality Calcium Troponin I B-Natriuretic Peptide 223 H TSH Urine Color Urine Clarity Urine pH Ur Specific [place] Urine Protein Urine Glucose (UA) Urine Ketones Urine Blood Urine Nitrite Urine Bilirubin Urine Urobilinogen Ur Leukocyte Esterase Ur Culture Indicated? Date of admission: 05/11/17 18:18 Primary care physician: Esteban Ken MD Discharging clinician: Esteban Ken Anticipated date of discharge: 05/13/17 - Patient Status Disposition: Transfer Other Condition: Fair Functional capacity at discharge: bed bound Overall status at discharge: other (Condition has worsened and requires transfer to [facility]) - Discharge Instructions Follow Up With: Esteban Ken MD [Primary Care Provider] - - Diet and Activity Activity: other (Currently at bedrest) Diet: other (Holding diet due to lethargy) Interval History: Last evening her heart rate was still in the 90s and on low level of Cardizem drip. Metoprolol was initiated orally. This morning she developed fever 101.3. She has no new complaints but she is very somnolent. She awakens and has social smile conversation but easily goes back to sleep. She denies any chest pain, palpitations, dyspnea or any new complaints. She does know of our concern and need to transfer to [place] and she agrees. Hospital course: Ms. Campos is a 89 year old female who was initially admitted with orthostatic hypotension from dehydration, acute kidney injury and presumed UTI. Please see the list of diagnoses above. - Time Spent with Patient Total time spent providing and/or coordinating discharge services: - Constitutional Vitals: Temp Pulse Resp BP Pulse Ox 100.5 F H 70 18 155/79 97 05/13/17 10:08 05/13/17 10:08 05/13/17 10:08 05/13/17 07:00 05/13/17 10:15 General appearance: Present: A&O X 2. Absent: answers questions appropriately - Neck Neck exam general surgery: Present: full ROM, tenderness (Muscular tenderness of bilateral SCM.). Absent: lymphadenopathy, nuchal rigidity - Respiratory Additional comments: Crackles are heard in both lower lung antonio. No respiratory distress. She is using 2 L per nasal cannula and saturations were in the 90s. - Cardiovascular Cardiovascular exam: Present: irregular rhythm, +S1, +S2. Absent: systolic murmur Additional comments: Monitor continues to show atrial flutter. Heart rate is ranging 60s to 90s with drip weaning at 5 mg currently. - GI/Abdominal GI/Abdominal exam: Present: hernia (Very weak abdominal wall musculature with large hernia in the left upper quadrant. Soft reducible. This is chronic.), soft, no peritoneal signs. Absent: guarding, mass, tenderness - Extremities Exam Extremities exam: Present: warm. Absent: calf tenderness, mottling, pedal edema , tenderness - Neurological Exam Neurological exam: Present: CN II-XII intact, strengths equal and symetr throughout. Absent: alert (She is sleepy, drifts off to sleep and this has been her baseline since admission. She awakens, is a social smile, she has interaction in conversation and then goes back to sleep), speech deficit - Skin Additional comments: Senile ecchymosis on arms. No skin breakdown. No decubiti. - VTE Reasons for not Prescribing Prophylaxis: Not indicated-Anticoagulated or INR therapeutic
[2017-05-13] MEDS ORDERED: Vancomycin 1,000 MG in D5% in Water 250 ML IVPB SCH (11:00)
[2017-05-13] MEDS ORDERED: Levofloxacin 750 MG/150 ML 750 MG/150 ML BAG IVPB SCH (11:00)
[2017-05-13 11:37] VITALS: BP 152/87
[2017-05-13] MEDS ORDERED: Cefepime HCl 2,000 MG in Water for inj. (sterile) 20 ML 20 ML IVP SCH (16:00)
== END 2017-05-13 15:00 | disposition short-term general hospital (02) | DRG 689 ==
LOC: INPGRE 15:04 → EMEROOGRE 15:04 → INPGRE 22:10
PROVIDERS: ADMIT Family Medicine; ATTEND Family Medicine